=== PATIENT | male | born 1965 | race Caucasian/White ===

== ENCOUNTER 2016-12-03 16:37 | Inpatient (IN) | payer OTHER ==
[~2016-12-03] VITALS: Ht 182.9 cm; Wt 66.2 kg
--- NOTE | ~2016-12-03 | PA ---
Unit #: [id number] #: [id number] Patient: BRITTANIE BELLO [id number] [place] [address] [id number] I MR#: [id number] NAME: BRITTANIE BELLO ROOM: P202 Age: 51 Sex: M Admission Date: 12/03/2016 : 1965 Date of Assessment: 12/04/2016 Attending Physician: Franklin Crump M.D. Admitting Physician: Franklin Crump M.D. Primary Care Physician: [facility] PSYCHIATRIC ASSESSMENT DATE OF SERVICE 12/04/2016. INFORMANTS The patient, reliable and OLOP, reliable. CHIEF COMPLAINT Alcohol use. HISTORY OF PRESENT ILLNESS Mr. Bello is a 51-year-old man, who reports he has been using 2 to 3 fifths of alcohol daily. He denied suicidal ideation or homicidal ideation, but said he is increasingly hopeless and helpless. He was unable to tolerate detox in the outpatient setting and was admitted for alcohol detox. PAST PSYCHIATRIC HISTORY The patient has been at this facility in the past for chemical dependence, but not since about 2005. He had questionable diagnosis of bipolar disorder that has not been confirmed. FAMILY PSYCHIATRIC HISTORY The patient's father had schizophrenia and his mother had depression. SOCIAL HISTORY The patient is a 12th grade graduate, who owns an independent business. He recently broke up with his girlfriend of 2 years and is living with a friend who unfortunately also drinks. PAST MEDICAL HISTORY No chronic medical problems, although the patient does have a history of withdrawal seizures. MEDICATIONS None currently. ALLERGIES No known medication allergies. SUBSTANCE USE HISTORY As noted above. MENTAL STATUS EXAMINATION Unit #: [id number] #: [id number] Patient: BRITTANIE BELLO presented as a mildly disheveled man, appearing older than his stated age. He was cooperative with the examination. His speech was spontaneous and easily understood. His musculoskeletal examination was calm. His mood was depressed and irritable with a congruent affect. He was alert and fully oriented. His memory and concentration were fair. His thought processes were goal directed with no active psychosis. He denied suicidal ideation, intent, or plan. Insight and judgment, fair. Fund of knowledge and abstraction, fair. ASSETS AND LIABILITIES The patient knows local resources and presents voluntarily for treatment. Liabilities include difficulty maintaining sobriety. ADMITTING DIAGNOSES AXIS I: Alcohol dependence with withdrawal, uncomplicated, F10.230 and depressive disorder, not otherwise specified. AXIS II: No diagnosis. AXIS III: History of herpetic infection. AXIS IV: AXIS V: PSYCHIATRIC PLAN The patient was admitted and placed on the alcohol detox protocol. Prozac and Risperdal from his previous physician will be continued as will Zovirax for his infection. He will enroll in dual diagnosis groups and activities, and physical examination and laboratory studies will be ordered and reviewed. At his request, an HIV test will also be obtained. TREATMENT GOALS Resolution of intoxication, improvement in mood, improvement in insight, and improvement in coping skills. DISCHARGE PLANNING Follow up with community mental health and primary care physician. ESTIMATED LENGTH OF STAY 5 days. Dictated by... Franklin Crump M.D. PATRICK/samy TD: 12/08/2016 12:34 JOB #: [id number] Unit #: [id number] #: [id number] Patient: BRITTANIE BELLO PSYCHIATRIC ASSESSMENT Page 1 of 1 X Franklin Crump MD PSYCHIATRIC ASSESSMENT
--- NOTE | ~2016-12-03 | HP ---
Unit #: [id number] #: [id number] Patient: CARSON BELLO [id number] [place] [address] [id number] MR#: [id number] NAME: CARSON BELLO ROOM: P202 Age: 51 Sex: M Admission Date: 12/03/2016 : 1965 Attending Physician: Franklin Crump M.D. Admitting Physician: Franklin Crump M.D. Primary Care Physician: [facility] HISTORY AND PHYSICAL HISTORY OF PRESENT ILLNESS Carson is a 51 year old admitted to [address] [place] [address] because of his polysubstance abuse which includes alcohol and a past history of IV heroin. PAST MEDICAL HISTORY 1. History of alcohol abuse. 2. Long history of illicit substance abuse to include IV heroin. He also abuses benzodiazepines. 3. History of withdrawal seizures. 4. Hepatitis C. 5. History of herpes simplex. PAST SURGICAL HISTORY Nothing reported. ALLERGIES No known drug allergies. SOCIAL HISTORY Smokes one pack per day. He alleges that he drinks 2 to 3 fifths of liquor on a daily basis. He has a history of IV heroin and abuses benzodiazepines but has done neither of these in "years." FAMILY HISTORY Medically noncontributory. REVIEW OF SYSTEMS CONSTITUTIONAL: No fever or chills. HEENT: Denies any sore throat, ear pain or runny nose. CARDIOVASCULAR: Denies chest pain, irregular heart rhythm or palpitations. CHEST: Denies shortness of breath or cough. No hemoptysis. GASTROINTESTINAL: Denies nausea, vomiting, diarrhea or chronic constipation. ENDOCRINE: Denies history of increased thirst or urination. No recent significant weight loss or gain. GENITOURINARY: Denies dysuria, frequency, or hematuria. SKIN: Denies any rashes. HEMATOLOGIC: Denies history of increased bleeding or bruising. MUSCULOSKELETAL: Denies any hot, swollen joints. No generalized muscle pain. NEUROLOGIC: Denies problems with vision or speech. No frequent, severe headaches. No numbness, tingling or weakness in any extremities. Denies loss of bladder or bowel control. Unit #: [id number] #: [id number] Patient: CARSON BELLO CURRENT MEDICATIONS 1. Prozac 40 mg q. day. 2. Desyrel 50 mg q.h.s. p.r.n. 3. Detox protocol. 4. Zovirax 200 mg q. day. PHYSICAL EXAMINATION GENERAL: Alert, well nourished. No apparent distress. VITAL SIGNS: Blood pressure 100/60, heart rate 72, respirations 16, and temperature 98.6. WEIGHT: 146. HEIGHT: 6 feet 0 inches. SKIN: Warm and dry without rash or lesion. HEENT: Normocephalic. TMs not viewed. Oral and nasal passages clear. Conjunctivae clear. PERRLA. EOMs intact. NECK: Supple without lymphadenopathy or thyromegaly. HEART: Regular rate and rhythm without murmur. LUNGS: Clear. ABDOMEN: Soft, nontender. : Not done. EXTREMITIES: No evidence of cyanosis, clubbing or edema. Moves all without focal deficit. NEUROLOGICAL: Grossly within normal limits. Cranial Nerves: II: Visual evans are intact. III, IV AND : Extraocular movements are intact. Pupils are equal, round and reactive to light. V: Facial sensation is grossly normal. VII: Facial movements and expression are normal. VIII: Auditory acuity grossly intact. IX, X: Uvula is midline. Phonation is normal. XI: Patient shrugs shoulders and turns head normally. XII: Tongue protrudes in the midline. Sensory and Motor Function: Sensory and motor sensation is grossly normal. Motor: moves all extremities well. Coordination: Gait is normal. Deep Tendon Reflexes: Intact. IMPRESSION Psychiatric admission. RECOMMENDATIONS PSYCHIATRIC: Per psychiatrist. MEDICAL: I see no contraindication to participate in this facility's activities. MEDICAL PROGNOSIS Good. MEDICAL CONDITION Stable. Dictated by... Ele Ram P.A.-C. for Charli Waldrop/markus Unit #: [id number] #: [id number] Patient: CARSON BELLO TD: 12/04/2016 14:35 JOB #: [id number] HISTORY AND PHYSICAL Page 1 of 1 X Ele Ram HISTORY AND PHYSICAL
--- NOTE | ~2016-12-03 | A ---
[facility] Nutrition Therapy DATE: 12/04/16 Patient: BRITTANIE BELLO Physician: JOSE Address: [address] [place] [address] Room/Bed: [address], Zip: [place] [address] Admit Date: 12/03/16 Date of : [birth year] Height: 6 0 Weight: [phone] NUTRITIONAL ASSESSMENT: REASON: PT SEEN FOR 1PT NUTRITION RISK SCORE FOR UNINTENTIONAL WEIGHT LOSS ADMITTED FOR ETOH ABUSE, DETOX PMH: WITHDRAWAL SZ, HEP C Anthropometrics: PT IS 51 YO MALE. HT 6'0", WT 146LBS, BMI 19. IBW 170, 86%IBW Labs: K 3.3L, BUN 6L, AST 156L, ALT 77H Meds: PROZAC, DESYREL, MVI, DETOX PROTOCOL Assessment: PT LIVES WITH ROOMMATE WHO DRINKS. PT REPORTS SMOKING 1 PPD CIGARETTES, SMOKES CRACK EVERY NIGHT X 6 MONTHS. PT REPORTS DRINKING 2-3 FIFTHS OF VODKA DAILY X 4 YEARS. PT IS ON REGULAR DIET AND ENCOURAGED TO DRINK FLUIDS. PT REPORTED A 20LB WEIGHT LOSS X MONTHS. PER PT, HE HAS HAD POOR PO INTAKE AND POOR APPETITE LATELY. WHILE AT THIS FACILITY HE HAS ONLY HAD ONE MEAL, BREAKFAST, WHICH HE CLAIMS TO HAVE EATEN. PT AGREED TO EXTRA PORTIONS AND REPORTED THAT HE DISLIKED UNCOOKED ONIONS. Dx: UNINTENTIONAL WEIGHT LOSS R/T CURRENT CONDITION AEB PT REPORT OF POOR PO INTAKE, POOR APPETITE, AND 20LB WT LOSS Intervention: REGULAR DIET, EXTRA PORTIONS, PSYCH, MEDS PER MD Monitoring, Evaluation and Goals: 1. ADEQUATE PO INTAKE >50% OF MEALS 2. PREVENT FURTHER WEIGHT LOSS AND MAINTAIN HEALTHY BMI MONITOR: WEIGHT, PO/FLUID INTAKE Recommendations: 1. RD WILL ORDER LARGE PORTION ENTREES @ L & D 2. ENCOURAGE PO/FLUID INTAKE 3. IF PO INTAKE IS <50%, PLEASE ORDER ENSURE BID RD WILL FOLLOW UP PER PROTOCOL AND PRN RELATED TO PT'S MILD NUTRITION RISK. Respectfully, BERNIE DUPONT RD, LD [facility] Nutrition Therapy DATE: 12/04/16 Patient: BRITTANIE BELLO Physician: JOSE Address: [address] [place] [address] Room/Bed: [address], Zip: [place] [id number] Admit Date: 12/03/16 Date of : [birth year] Height: 6 0 Weight: [phone] [facility] cc: client file
--- NOTE | ~2016-12-03 | DS ---
Unit #: [id number] #: [id number] Patient: BRITTANIE BELLO [id number] [place] [address] [id number] I MR#: [id number] NAME: BRITTANIE BELLO ROOM: P202 Age: 51 Sex: M Admission Date: 12/03/2016 : 1965 Discharge Date: 12/08/2016 Attending Physician: Franklin Crump M.D. Primary Care Physician: [facility] DISCHARGE SUMMARY REASON FOR ADMISSION Mr. Bello is a 51-year-old man with a history of depression and alcohol dependence, who reported he is increasingly drinking and unable to tolerate detox in the outpatient setting. He is taking medicine for depression and had no suicidal ideation, intent, or plan. He was admitted for alcohol detox. DIAGNOSTIC STUDIES LABORATORY RESULTS: HIV was negative. Liver functions were elevated within an AST of 156, ALT 77, and alkaline phosphatase of 94. HOSPITAL COURSE The patient was admitted and placed on the alcohol detox protocol. His home medications were restarted. A history of herpes and hepatitis C was noted. He did request information on treatment for his hepatitis C and was given a referral to the [facility]. He had an uneventful period of detox and no threats of suicide throughout the hospitalization. He was able to contract for safety on the date of discharge. DISCHARGE DIAGNOSES AXIS I: Alcohol dependence and depressive disorder, not otherwise specified. AXIS II: No diagnosis. AXIS III: Hepatitis C and genital herpes. AXIS IV: AXIS V: DISCHARGE INSTRUCTIONS Follow up with CD programing of your choice and with the [facility] or your primary care doctor. DISCHARGE MEDICATIONS None. The patient was to continue on Prozac 40 mg daily for depression and Zovirax 200 mg daily at for herpes simplex. CONDITION AT DISCHARGE Improved. PROGNOSIS Fair to good. Unit #: [id number] #: [id number] Patient: BRITTANIE BELLO DIET AND ACTIVITY Per primary care doctor. Dictated by... Franklin Crump M.D. MRH/modl TD: 12/08/2016 12:27 JOB #: [id number] DISCHARGE SUMMARY Page 1 of 1 X Franklin Crump MD DISCHARGE SUMMARY
[2016-12-04 09:44] LABS: BASOPHIL# 0.1 X10e3 (0-0.3); BASOPHIL% 1.3 % (0-2.5); EOSINOPHIL# 0.2 X10e3 (0-0.7); EOSINOPHIL% 4.4 % (0.0-7.0); HEMATOCRIT 48.3 % (38.0-50.0); HEMOGLOBIN 16.2 gm/dL (13.0-16.0); LYMPHOCYTE% 43.2 % (17.0-45.0); MEAN CORPUSCULAR HEMOGLOBIN 31.2 PG (28-34); MEAN CORPUSCULAR HGB CONC 33.5 g/dL (30-36); MEAN PLATELET VOLUME 8.7 FL (6.5-11.5); MONOCYTE# 0.6 X10e3 (0-1.0); MONOCYTE% 13.2 % (3.0-12.0); NEUTROPHIL# 1.8 X10e3 (1.5-7.1); NEUTROPHIL% 37.9 % (40-75); PLATELET COUNT 167 X10e3 (140-420); RED BLOOD COUNT 5.19 X10e (3.90-5.60); RED CELL DISTRIBUTION WIDTH 16.1 % (11.0-15.5); WHITE BLOOD COUNT 4.7 X10e3 (4.0-10.5)
[2016-12-04 09:56] LABS: DIFF IND NO
[2016-12-04 09:58] LABS: ALBUMIN SERUM 3.8 g/dL (3.5-5.0); BILIRUBIN,TOTAL 0.6 mg/dL (0.2-2.0); BUN/CREATININE RATIO 6.66; CALCIUM SERUM 8.8 mg/dL (8.4-10.2); CREATININE SERUM 0.9 mg/dL (0.6-1.4); GLOM FILT RATE Estimated 99.9 mL/min (>60); POTASSIUM 3.3 mmol/L (3.5-5.1); PROTEIN TOTAL SERUM 7.7 g/dL (6.0-8.3)
== END 2016-12-08 11:05 | disposition home or self-care (01) | DRG 897 ==
LOC: P2S 18:19
PROVIDERS: Psychiatry & Neurology Psychiatry
PROC: HZ2ZZZZ Detoxification Services for Substance Abuse Treatment (ICD-10-PCS; principal; 2016-12-04)
DX: F10.230 Alcohol dependence with withdrawal, uncomplicated (principal); F32.9 Major depressive disorder, single episode, unspecified; B19.20 Unspecified viral hepatitis C without hepatic coma; A60.00 Herpesviral infection of urogenital system, unspecified
CPT/HCPCS: 80053; 85025; 86592; 87806